=== PATIENT | male | born 1985 | race Hispanic/Latino ===

== ENCOUNTER 2019-06-26 10:08 | Emergency (ER) | payer SELFPAY ==
[2019-06-26] MEDS ORDERED: HYDROXYZINE HCL 25 MG TABLET ONE (10:30)
== END 2019-06-26 12:21 | disposition home or self-care (01) ==
LOC: EDH 10:08
DX: F41.1 Generalized anxiety disorder (principal); J02.9 Acute pharyngitis, unspecified; Z79.899 Other long term (current) drug therapy; Z87.891 Personal history of nicotine dependence
CPT/HCPCS: 70360; 87880; 93005